=== PATIENT | male | born 1975 | race Caucasian/White ===

== ENCOUNTER → 2021-10-19 13:41 | Outpatient (CLI) | payer OTHER, SELFPAY ==
--- NOTE | 2021-10-19 | DI.RAD.S_ITS ---
PROCEDURE: XR SINUS MIN 3V INDICATIONS: Encounter for general adult medical examination without abno TECHNIQUE: 3 views of the sinuses were acquired. COMPARISON: None. FINDINGS: Sinuses: The visualized sinuses demonstrate no air-fluid levels or mucosal thickening. The visualized mastoids also appear clear. Bones: No suspicious bony lesions. Nasal septum is midline. IMPRESSION: Normal study. No plain radiographic findings of sinusitis. CT sinuses could be considered for more sensitive evaluation. Dictated by: Slava Villarreal M.D. on 10/19/2021 at 16:01 Approved by: Slava Villarreal M.D. on 10/19/2021 at 16:01
== END ==
PROVIDERS: Referring Provider Family Medicine; Visit Provider Family Medicine
DX: Z00.00 Encounter for general adult medical examination without abnormal findings (principal)
CPT/HCPCS: 70220

== ENCOUNTER → 2022-07-24 16:39 | Outpatient (CLI) | payer OTHER, SELFPAY ==
[2022-07-24 17:46] LABS: Hemoglobin A1C% w Est Avg Glu 5.5 % (4.0-6.0)
[2022-07-24 17:53] LABS: Alanine Aminotransferase 25 IU/L (<50); Albumin 4.3 g/dL (3.5-5.0); Albumin Globulin Ratio 1.3 (1.0-2.8); Alkaline Phosphatase 69 U/L (38-126); Aspartate Aminotransferase 24 IU/L (17-59); BUN Creatinine Ratio 15.2 (6-22); Bilirubin Total 0.4 mg/dL (0.2-1.3); Blood Urea Nitrogen 15 mg/dL (9-20); Calcium 9.1 mg/dL (8.4-10.2); Carbon Dioxide 25 mmol/L (22-32); Chloride 105 mmol/L (98-107); Cholesterol 192 mg/dL (140-199); Estimated Glomerular Filt Rate > 60 mL/min (>60); Globulin 3.3 g/dL (1.7-4.1); Glucose 94 mg/dL (70-100); HDL Cholesterol 44 mg/dL (40-60); HEMOLYSIS < 15 (0-50); LDL Cholesterol Calculated 127 mg/dL (<100); Potassium 4.2 mmol/L (3.4-5.1); Sodium 140 mmol/L (137-145); Total Protein 7.6 g/dL (6.3-8.2); Triglycerides 104 mg/dL (35-150)
== END ==
PROVIDERS: PCP Family Medicine; Referring Provider Family Medicine; Visit Provider Family Medicine
DX: Z00.00 Encounter for general adult medical examination without abnormal findings (principal)
CPT/HCPCS: 36415; 80053; 80061; 83036

== ENCOUNTER → 2024-08-26 08:38 | Outpatient (CLI) | payer OTHER, SELFPAY ==
[2024-08-26 09:21] LABS: Add Manual Diff / Slide Review NO; Basophils Absolute Auto 0 /uL (0-100); Basophils Percent Auto 0.7 % (0-2); Eosinophils Absolute Auto 100 /uL (0-450); Eosinophils Percent Auto 2.2 % (2-4); Hematocrit 46.1 % (41-53); Hemoglobin 15.5 g/dL (13.5-17.5); Lymphocytes Absolute Auto 1500 /uL (1100-4500); Lymphocytes Percent Auto 30.8 % (25-40); Mean Corpuscular HGB Conc 33.7 % (30-36); Mean Corpuscular Hemoglobin 31.5 PG (26-34); Mean Corpuscular Volume 93.4 fL (80-100); Monocytes Absolute Auto 500 /uL (0-900); Neutrophils Absolute Auto 2800 /uL (1500-7000); Neutrophils Percent Auto 56.3 % (50-75); Platelet Count 213 X10^3/uL (150-400); Red Blood Cell Count 4.94 X10^6/uL (4.5-5.9)
[2024-08-26 10:17] LABS: Alanine Aminotransferase 43 IU/L (<50); Albumin 5.2 g/dL (3.5-5.0); Albumin Globulin Ratio 1.6 (1.0-2.8); Alkaline Phosphatase 54 U/L (38-126); Aspartate Aminotransferase 78 IU/L (17-59); BUN Creatinine Ratio 12.3 (6-22); Bilirubin Total 1.2 mg/dL (0.2-1.3); Blood Urea Nitrogen 13 mg/dL (9-20); Calcium 9.7 mg/dL (8.4-10.2); Carbon Dioxide 26 mmol/L (22-32); Chloride 106 mmol/L (98-107); Cholesterol 221 mg/dL (140-199); Estimated Glomerular Filt Rate > 60 mL/min (>60); Globulin 3.2 g/dL (1.7-4.1); Glucose 76 mg/dL (70-100); HDL Cholesterol 50 mg/dL (40-60); HEMOLYSIS < 15 (0-50); LDL Cholesterol Calculated 156 mg/dL (<100); Potassium 4.3 mmol/L (3.4-5.1); Sodium 142 mmol/L (137-145); Total Protein 8.4 g/dL (6.3-8.2); Triglycerides 74 mg/dL (35-150)
[2024-08-26 10:31] LABS: TSH w/ Reflex to FT4 0.87 uIU/mL (0.47-4.68)
[2024-08-26 15:31] LABS: HIV 1 & 2 Ab/Ag 4th Gen Combo NEGATIVE (NEGATIVE); Hep C Virus Ab w/Reflex Quant NEGATIVE s/c (NEGATIVE)
== END ==
PROVIDERS: PCP Family Medicine; Referring Provider Family Medicine; Visit Provider Family Medicine
DX: R63.4 Abnormal weight loss (principal); Z72.820 Sleep deprivation; H93.19 Tinnitus, unspecified ear; R63.0 Anorexia; R12 Heartburn
CPT/HCPCS: 36415; 80053; 80061; 84443; 85025; 86803; 87389

== ENCOUNTER 2024-12-02 11:53 | Day surgery (SDC) | payer OTHER, SELFPAY ==
--- NOTE | 2024-12-02 | PATH_ITS ---
[facility] Accession Number: [id number] No. of containers..04 Tissue . 01 Material submitted: . PART A: stomach - STOMACH, ANTRUM PART B: esophagus - ESOPHAGEAL, MID PART C: esophagus - ESOPHAGUS, DISTAL PART D: esophagus, E-G Junction - ESOPHAGUS, GE JUNCTION . 01 Diagnosis: A. STOMACH, ANTRUM, BIOPSY: Antral mucosa with focal mild reactive gastropathy. Negative for Helicobacter organisms and intestinal metaplasia. Negative for dysplasia and malignancy. . B. MID ESOPHAGUS, BIOPSY: Squamous epithelium with mild reactive changes and scattered eosinophils (up to 5 per high-power field), see comment. Negative for dysplasia and malignancy. . C. DISTAL ESOPHAGUS, BIOPSY: Squamous epithelium with mild reactive changes and scattered eosinophils (up to 6 per high-power field), see comment. Negative for dysplasia and malignancy. . D. GASTROESOPHAGEAL JUNCTION, BIOPSY: Squamocolumnar junctional mucosa with reactive changes and scattered eosinophils (up to 4 per high-power field), see comment. Negative for intestinal metaplasia, dysplasia, and malignancy. [facility] 12/07/2024 1628 Local . 01 Comment: The finding of scattered, low numbers of intraepithelial eosinophils is not specific to eosinophilic esophagitis and can also be related to gastroesophageal reflux disease, particularly when seen in the lower esophagus. Background changes in all three biopsies are compatible with reflux changes, however, an element of early or mild eosinophilic esophagitis cannot be entirely excluded. Clinical and endoscopic correlation is recommended. . 01 Electronically signed: . Adore Fonseca DO, Pathologist NPI- [id number] . 01 Gross description: . Part A: STOMACH, ANTRUM: Received in formalin are 4 fragment(s) of castillo, soft tissue measuring 0.2 x 0.2 x 0.2 cm to 0.4 x 0.2 x 0.2 cm submitted entirely in 1 cassette(s) Part B: ESOPHAGEAL, MID: Received in formalin are 3 fragment(s) of castillo, soft tissue measuring 0.2 x 0.2 x 0.1 cm to 0.4 x 0.3 x 0.1 cm submitted entirely in 1 cassette(s) Part C: ESOPHAGUS, DISTAL: Received in formalin are 2 fragment(s) of castillo, soft tissue measuring 0.3 x 0.2 x 0.1 cm to 0.4 x 0.2 x 0.1 cm submitted entirely in 1 cassette(s) Part D: ESOPHAGUS, GE JUNCTION: Received in formalin are 4 fragment(s) of castillo, soft tissue measuring 0.1 x 0.1 x 0.1 cm to 0.3 x 0.3 x 0.2 cm submitted entirely in 1 cassette(s) /[facility] 12/03/2024 0001 Local . 01 Pathologist provided ICD-10: K21.9 . 01 CPT . 864582, 464982, 141206, 353916 Specimen Comment: A courtesy copy of this report has been sent to [phone] Performed at: [address] [facility] [address], [place], [place] [id number] MD Jorgito Yap MD Phone: [phone]
[2024-12-02 12:04] VITALS: BP 149/90; PULSE 81; RESP 18; TEMP 36.2; O2SAT 100
[2024-12-02] MEDS: LACTATED RINGERS 1,000 ML 42 ML IV (12:13)
--- NOTE | 2024-12-02 12:37 | P.HP_ITS ---
History of Present Illness History of Present Illness Date Patient Seen: 12/02/24 Time Patient Seen: 12:37 Chief complaint: SDC Narrative: Milton is a 49-year-old man with gastroesophageal reflux and weight loss. See the October office note for more details. [facility] Medical History (Updated 10/19/24 @ 04:52 by CANDIE Mejia) PE (physical exam), annual Social History Smoking Status: Never smoker alcohol intake: never Meds Home Medications and Allergies Home Medications Medication Instructions Recorded Confirmed Type multivit with min-folic acid PO 07/24/22 10/11/24 History [Adult One Daily Multivitamin] omeprazole 20 mg tablet,delayed 20 mg PO DAILY 08/26/24 10/11/24 History release Allergies Allergy/AdvReac Type Severity Reaction Status Date / Time No Known Drug Allergies Allergy Verified 12/02/24 12:02 Exam Vital Signs (past 8 hours): - 12/02/24 12:04 Temperature 97.1 F L Pulse Rate 81 Respiratory Rate 18 Blood Pressure 149/90 H Pulse Oximetry 100 Oxygen Delivery Method Room Air Oxygen Delivery Method Room Air Const General: healthy appearing Assessment & Plan Assessment and plan (1) Weight loss, intentional: Status: Acute Plan EGD and colonoscopy Time-Based Coding :: [TOTAL MINUTES] spent with patient and on the chart (including review of chart, obtaining history, exam, reviewing outside data, placing orders, documenting exam and treatment plan, and counseling patient) on [DATE]. [employer] Document charge(s): No
[2024-12-02 13:09] VITALS: BP 100/65; PULSE 59; RESP 21; TEMP 37.1; O2SAT 95
--- NOTE | 2024-12-02 13:13 | PM.OP.EC ---
Operative Date/Time/Diagnoses Date of procedure: 12/02/24 Time of procedure: 13:14 Pre-op diagnosis: Weight loss and reflux Post-op diagnosis: same Procedure & Clinicians Study performed: EGD and colonoscopy Same procedure as scheduled: Yes Surgeon: Eddi Swenson Procedure Notes Procedure in detail: Surgeon: Eddi Swenson MD Anesthesia: Eddie Parish MD Procedure in detail: A timeout was performed. A bite blocked was placed and monitors were attached to the patient. The patient was positioned in the left lateral decubitus position. Sedation was administered. Once the patient was sedated the endoscope was inserted through the bite block and passed through the esophagus and stomach and into the duodenum. The duodenum appeared normal. We then withdrew the scope into the stomach. There was mild antritis and random biopsies were taken from the antral mucosa with cold forceps. The endoscope was retroflexed and no abnormalities were seen. The endoscope was straightned and withdrawn into the esophagus. There was some inflammation near the GE junction and biopsies were taken from the GE junction with the cold forceps. The mid and distal esophageal mucosa appeared somewhat irregular and biopsies were taken from the distal esophagus and mid esophagus with the cold forceps. EGD findings: Mild antritis, mild esophagitis at the GE junction and irregular mucosa of the mid and distal esophagus Next we repositioned the patient for a colonoscopy. A digital rectal exam was performed and was normal aside from some mild prolapsed hemorrhoids. The colonoscope was inserted and advanced to the cecum. The appendiceal orifice was identified and photographed. The scope was slowly withdrawn over greater than 6 minutes. No polyps or other abnormalities were found. The scope was retroflexed in the rectum and mild internal hemorrhoids were noted. Colonoscopy findings: Mild internal and prolapsed hemorrhoids Total procedural EBL: 5 mL Scope withdrawal time: 6 minutes Sedation minutes: 26 minutes Post-procedure Recommendations: Colonscopy in 10 years Disposition: PACU
[2024-12-02 13:14] VITALS: BP 100/61; BP 92/63; PULSE 59; PULSE 60; RESP 16; RESP 20; TEMP 37.1; O2SAT 95; O2SAT 97
[2024-12-02 13:19] VITALS: BP 104/73; PULSE 58; RESP 20; TEMP 36.9; O2SAT 100
[2024-12-02 13:20] VITALS: BP 120/82; PULSE 63; RESP 16; O2SAT 97
== END 2024-12-02 13:57 | disposition home or self-care (01) ==
PROVIDERS: PCP Family Medicine; Referring Provider Surgery; Visit Provider Surgery
PROC: 0DJ08ZZ Inspection of Upper Intestinal Tract, Via Natural or Artificial Opening Endoscopic (ICD-10-PCS; CPT 43239; principal; 2024-12-02 12:45)
PROC: 0DJD8ZZ Inspection of Lower Intestinal Tract, Via Natural or Artificial Opening Endoscopic (ICD-10-PCS; CPT 45378; 2024-12-02 12:45)
DX: R63.4 Abnormal weight loss (principal); K21.9 Gastro-esophageal reflux disease without esophagitis; K64.8 Other hemorrhoids; K29.50 Unspecified chronic gastritis without bleeding; K20.90 Esophagitis, unspecified without bleeding; K31.9 Disease of stomach and duodenum, unspecified
CPT/HCPCS: 43239; 45378; J2704